=== PATIENT | female | born 1990 | race Caucasian/White ===

== ENCOUNTER 2020-09-06 18:33 | Emergency (ER) | payer OTHER ==
[~2020-09-06] VITALS: Ht 172.7 cm; Wt 77.1 kg
[2020-09-06] MEDS ORDERED: NORCO 5-325 TA1 EAC2 PO (19:40)
[2020-09-06] MEDS ORDERED: IBUPROFEN 800800 M1 PO (19:40)
[2020-09-06 20:42] VITALS: BP 168/80
== END 2020-09-06 20:43 | disposition home or self-care (01) ==
LOC: M.ERS 18:33
DX: S93.692A Other sprain of left foot, initial encounter (principal); X50.1XXA Overexertion from prolonged static or awkward postures, initial encounter; Y93.89 Activity, other specified; Y92.89 Other specified places as the place of occurrence of the external cause; Y99.8 Other external cause status